=== PATIENT | female | born 1990 | race Caucasian/White ===

== ENCOUNTER 2023-03-08 03:15 | Emergency (ER) | payer BC ==
[2023-03-08 03:24] VITALS: BMI 31.7
[2023-03-08] MEDS ORDERED: FAMOTIDINE 20 MG/50 ML IVPB 20 MG/50 ML MG IVPB ONE ×2 (03:40→03:47)
[2023-03-08] MEDS ORDERED: DEXAMETHASONE SOD PHOSPHATE 10 MG/1 ML VIAL IVPUSH ONE (03:40)
[2023-03-08] MEDS ORDERED: EPINEPHrine 1:1,000 0.3 MG/0.3 ML SYR IM ONE (03:41)
[2023-03-08] MEDS ORDERED: ACETAMINOPHEN 1000 MG/100 ML BAG IVPB ONE (03:41)
[2023-03-08] MEDS ORDERED: LACTATED RINGERS SOLUTION 1000 ML INFUS.BAG IV ONE ×4 (03:41→07:24)
[2023-03-08] MEDS ORDERED: ONDANSETRON 4 MG/2 ML VIAL IVPUSH ONE (03:41)
[2023-03-08] MEDS ORDERED: DEXAMETHASONE SOD PHOSPHATE 10 MG/1 ML VIAL ONE (03:46)
[2023-03-08] MEDS ORDERED: EPINEPHrine/PF 1 MG/1 ML (1:1,000) AMPULE ONE (03:46)
[2023-03-08] MEDS ORDERED: ONDANSETRON 4 MG/2 ML VIAL ONE (03:47)
[2023-03-08] MEDS ORDERED: ACETAMINOPHEN INJECTION 100 ML IVPB ONE (03:47)
[2023-03-08 04:02] LABS: HEMATOCRIT 48.7 % (32.4-45.2); MCH 30.5 pg (25.7-33.7); MCHC 34.9 g/dl (32.0-36.0); MEAN CELL VOLUME 87.5 fl (80-96); MEAN PLT VOLUME 9.7 fl (7.5-11.1); PLATELET COUNT 452 10^3/uL (134-434); RBC 5.56 M/mm3 (3.60-5.2); RDW 12.4 % (11.6-15.6)
[2023-03-08 04:04] LABS: INR 0.97 (0.83-1.09); PROTHROMBIN TIME (PATIENT) 11.3 SEC (9.7-13.0)
[2023-03-08 04:07] LABS: ACTIVATED PTT 43.2 SECONDS (25.2-36.5)
[2023-03-08 04:08] LABS: POTASSIUM 4.3 mmol/L (3.5-5.1)
[2023-03-08 04:10] LABS: ALBUMIN 3.7 g/dl (3.4-5.0)
[2023-03-08 04:11] LABS: BLOOD UREA NITROGEN 16.5 mg/dL (7-18); MAGNESIUM 1.7 mg/dL (1.8-2.4); WHITE BLOOD COUNT 30.3 K/mm3 (4.0-10.0)
[2023-03-08 04:13] LABS: CREATININE 1.4 mg/dL (0.55-1.3)
[2023-03-08] MEDS ORDERED: MAGNESIUM SULF 50% (8.12 MEQ/2 ML-1 GM VIAL) IVPB ONE (04:14)
[2023-03-08 04:15] LABS: BILIRUBIN,TOTAL 0.3 mg/dL (0.2-1); TOT PROT 7.8 g/dl (6.4-8.2)
[2023-03-08] MEDS ORDERED: MAGNESIUM SULFATE IN WATER 2 GM/50 ML IVPB IVPB ONE (04:15)
[2023-03-08 04:36] LABS: LACTIC ACID 4.5 mmol/L (0.4-2.0)
[2023-03-08 05:20] LABS: ANISOCYTOSIS 2+; MACROCYTOSIS 0; OVALOCYTE 2+
[2023-03-08 06:10] LABS: POTASSIUM 3.8 mmol/L (3.5-5.1)
[2023-03-08 06:12] LABS: BLOOD UREA NITROGEN 16.3 mg/dL (7-18)
[2023-03-08 06:28] LABS: HEMOGLOBIN 13.1 GM/dL (10.7-15.3); MCH 30.2 pg (25.7-33.7); MCHC 33.5 g/dl (32.0-36.0); MEAN CELL VOLUME 90.1 fl (80-96); MEAN PLT VOLUME 9.7 fl (7.5-11.1); PLATELET COUNT 261 10^3/uL (134-434); RBC 4.33 M/mm3 (3.60-5.2); RDW 11.9 % (11.6-15.6); WHITE BLOOD COUNT 20.9 K/mm3 (4.0-10.0)
[2023-03-08 07:11] LABS: CALCIUM 7.1 mg/dL (8.5-10.1)
[2023-03-08 08:19] LABS: URINE APPEARANCE CLEAR; URINE BILIRUBIN NEGATIVE (NEGATIVE); URINE COLOR YELLOW; URINE GLUCOSE (UA) TRACE (NEGATIVE); URINE KETONE 1+ (NEGATIVE); URINE LEUK ESTERASE NEGATIVE (NEGATIVE); URINE NITRITE NEGATIVE (NEGATIVE); URINE PROTEIN NEGATIVE (NEGATIVE); URINE UROBILINOGEN 0.2 mg/dL (0.2-1.0)
[2023-03-08 09:13] VITALS: RESP 21
[2023-03-08 12:01] LABS: HEMATOCRIT 35.6 % (32.4-45.2); HEMOGLOBIN 12.4 GM/dL (10.7-15.3); MCH 30.3 pg (25.7-33.7); MCHC 34.8 g/dl (32.0-36.0); MEAN CELL VOLUME 87.2 fl (80-96); MEAN PLT VOLUME 9.4 fl (7.5-11.1); PLATELET COUNT 273 10^3/uL (134-434); RBC 4.09 M/mm3 (3.60-5.2); RDW 12.3 % (11.6-15.6); WHITE BLOOD COUNT 12.4 K/mm3 (4.0-10.0)
[2023-03-08 12:20] LABS: POTASSIUM 4.4 mmol/L (3.5-5.1)
[2023-03-08 12:21] LABS: CALCIUM 7.3 mg/dL (8.5-10.1)
[2023-03-08 12:22] LABS: BLOOD UREA NITROGEN 11.2 mg/dL (7-18)
[2023-03-08 12:25] LABS: CREATININE 0.9 mg/dL (0.55-1.3)
[2023-03-08 12:33] LABS: ANISOCYTOSIS 0; MACROCYTOSIS 0
[2023-03-08 12:58] LABS: LACTIC ACID 4.2 mmol/L (0.4-2.0)
[2023-03-08 13:21] VITALS: BP 120/69; PULSE 100; TEMP 98.1
== END 2023-03-08 13:20 | disposition home or self-care (01) ==
LOC: JER 03:15
PROC: 3E033GC Introduction of Other Therapeutic Substance into Peripheral Vein, Percutaneous Approach (ICD-10-PCS; principal; 2023-03-08)
PROC: 3E033NZ Introduction of Analgesics, Hypnotics, Sedatives into Peripheral Vein, Percutaneous Approach (ICD-10-PCS; 2023-03-08)
PROC: 3E033GC Introduction of Other Therapeutic Substance into Peripheral Vein, Percutaneous Approach (ICD-10-PCS; 2023-03-08)
PROC: 3E033GC Introduction of Other Therapeutic Substance into Peripheral Vein, Percutaneous Approach (ICD-10-PCS; 2023-03-08)
PROC: 3E033GC Introduction of Other Therapeutic Substance into Peripheral Vein, Percutaneous Approach (ICD-10-PCS; 2023-03-08)
PROC: 3E033GC Introduction of Other Therapeutic Substance into Peripheral Vein, Percutaneous Approach (ICD-10-PCS; 2023-03-08)
PROC: 3E023GC Introduction of Other Therapeutic Substance into Muscle, Percutaneous Approach (ICD-10-PCS; 2023-03-08)
DX: R11.2 Nausea with vomiting, unspecified (principal); R19.7 Diarrhea, unspecified; R50.9 Fever, unspecified; T78.2XXA Anaphylactic shock, unspecified, initial encounter; R07.9 Chest pain, unspecified; R00.0 Tachycardia, unspecified; Z20.822 Contact with and (suspected) exposure to COVID-19
CPT/HCPCS: 0241U-QW; 36415; 71045-TC-FY; 71275-TC; 80048; 80053; 81003; 82375; 82962; 83605; 83690; 83735; 84439; 84443; 84484; 84703; 85025; 85027; 85379; 85610; 85730; 86850; 86900; 86901; 87040; 87086; 87186; 93005; 93010; 99285-25; J0171; J1100; Q9967